=== PATIENT | female | born 1970 | race Asian ===

== ENCOUNTER 2025-08-21 09:32 | Outpatient (AMB) | payer OTHER, SELFPAY ==
--- NOTE | 2025-08-21 09:39 | A.OFFVIS_ITS ---
Vital Signs 3 08/21/25 09:48 Height 5 ft 2 in Weight 144 lb 8 oz BMI 26.4 BP 146/85 H Blood Pressure Location Lt brachial Position Sitting Pulse 68 Intake Visit Reasons: benign lipomtous neoplasm Intake Note: Patient is seen in office for evaluation of a lipoma. Pt c/o: mass located right knee cap, onset months, moves around, denies pain, discharge, redness or other concerns Patient Care Secretary Required: No Accompanied by: Self / Same As Patient Allergies Seasonal Allergies Allergy (Mild, Verified 08/21/25 09:44) Unknown Medication List - Last Reconciled 08/21/25 by Justice Escalona MD No Known Home Meds HPI Comments Details: 55-year-old female patient presenting with a soft tissue mass located above the right knee. This has been present for many years and was noted to be very mobile. He has not changed significantly over the past year but she does occasionally have some discomfort when the lesion is palpated. She feels she has some new softer lesions located above this initial lesion as well. She denies any skin changes, redness or discharge. She denies fever or chills. She denies any previous radiologic studies. She denies a history of trauma to the right knee although she does report being very active. [facility] Surgical History History of surgery on lower extremity Hx of removal of cyst History of tonsillectomy Social History Alcohol intake: current Alcohol intake frequency: holidays/special occasions only Patient Tobacco Use Status: Never used Tobacco Review of Systems Const All systems reviewed & are unremarkable except as noted in HPI and below Physical Exam Const General: cooperative and no acute distress Nutritional Appearance: well nourished Orientation/consciousness: patient oriented x3 Limitations: no limitations HEENT Head: Yes normocephalic and Yes atraumatic Ears: hearing grossly normal bilaterally Resp Effort & Inspection: normal respiratory effort, no audible wheezes, no cough and no respiratory distress Cardio Jugular venous distension: no JVD GI Inspection: Yes normal to inspection Skin Other: Warm, dry, no rash Neuro General: patient oriented x3 Extrem General: Yes no clubbing, cyanosis or edema Knee images: 2 1. Widely mobile soft tissue mass suggestive of a synovial cyst measuring approximately 1 cm in diameter. There was no tenderness to palpation. A softer area in the midline above the knee appears more consistent with a lipoma measuring approximately 1.5 cm. No overlying skin changes are noted. 2. Possible lipoma as noted above Assessment & Plan Assessment & Plan (1) Cyst of right knee joint: Code(s): M25.861 - Other specified joint disorders, right knee Category: Medical Plan 55-year-old female patient presenting with a mobile soft tissue lesion in the right knee suggestive of a synovial cyst. I recommended further evaluation with ultrasound to confirmed the diagnosis. I will call her with the results once available. She reports that she is traveling down to [place] shortly and will attempt to get the study performed in [place]. Orders: Orders 2 US Extremity Nonvas Limited RT Today M25.861 - Other specified joint disorders, right knee Coding Level of Care Code New Pt Level 4 (50827) Diagnoses Cyst of right knee joint M25.861
[2025-08-21 09:48] VITALS: BP 146/85; PULSE 68; BMI 26.4
--- OUTSIDE RECORDS SUMMARY | 2025-08-21 10:53 | XMS_ITS | Clinical Summary ---
Author Organization [facility] [facility] Prior to 01/28/25 Address [address] [place] [address] Care Team Providers Care Corporate Affairs Manager Name Role Phone Ceasar Woodruff MD Primary Care Provider [phone] Allergies Active Allergy Reactions Criticality Noted Date Comments Seasonal 05/22/2017 Medications Medication Sig Dispensed Refills Start Date End Date Status ibuprofen (ADVIL,MOTRIN) 200 MG tablet Take 800 mg by mouth every 6 (six) hours as needed for pain. 0 Active Loratadine (CLARITIN) 10 MG CAPS Take by mouth. 0 Active Multiple Vitamins-Minerals (DAILY MULTI) TABS Take by mouth. 0 Ac tive Active Problems Problem Noted Date Diagnosed Date Closed displaced spiral frac ture of shaft of tibia with delayed healing 05/22/2017 Fracture of upper end of fibula 05/22/2017 Social History Tobacco Use Types Packs/Day Years Used Date Smoking Tobacco: Never Smokeless Tobacco: Never Alcohol Use Standard Drinks/Week Comments Yes 0 (1 standard drink = 0.6 oz pur e alcohol) occasional Sex and Gender Information Value Date Recorded Sex Assigned at Not on file Gender Identity Not on file Sexual Orientation Not on file Last Filed Vital Signs Vital Sign Reading Time Taken Comments Blood Pressure 117/72 09/24/2016 12:43 AM EST Pulse 72 09/24/2016 12:43 AM EST Temperature 36.8 C (98.3 F) 09/24/2016 12:30 AM EST Respiratory Rate 17 09/24/2016 12:43 AM EST Oxygen Saturation 98% 09/24/2016 12:30 AM EST Inhaled Oxygen Concentration - - Weight 66.2 kg (146 lb) 05/22/2017 10:14 AM EDT Height 157.5 cm (5' 2 ) 05/22/2017 10:14 AM EDT Body Mass Index 26.7 05/22/2017 10:14 AM EDT Plan of Treatment Health Maintenance Due Date Last Done Comments Hepatitis B Vaccines (1 of 3 - 3-dose series) 1971 Hepatitis C Screening 1971 COVID-19 Vaccine (#1) 1971 Depression Screening 1983 Preventative Health Evaluation 1989 DTap / Tdap / Td (1 - Tdap) 1990 Cervical Cancer Screening (P ap Smear) 1992 Colon Cancer Screening (Colonoscopy) 2016 Breast Cancer Screening (Mammogram) 2021 Shingrix-Zoster Vaccine (1 of 2) 2021 Influenza Vaccine (#1) 2025 Pneumococcal Vaccine Aged Out No long er eligible based on patient's age to complete this topic RSV Ped < 20 months Aged Out No longe r eligible based on patient's age to complete this topic Medical Devices Implanted Type Area Wort Extractor Device Identifier Shelf Expiration Date Model / Serial / Lot 4.0 Mm Cortex Screw Implanted:Qty: 3 on 09/23/2016 by Zoey Teague MD at [facility] [facility] Right: Ank[employer] 09/24/2016 [id number] / / N/A Screw Lcp Fullthrd 26mm 4mm 6mm Selftap Hexagon Recess - [id number] - [id number] Implanted:Qty: 2 on 09/23/2016 by Zoey Teague MD at [facility] [facility] Right: [employer] 09/24/2016 [id number] / / N/A Screw Lcp Short Thread 36mm 4mm Isidra Stainless [employer] Bone - [id number] - [id number] Implanted:Qty: 1 on 09/23/2016 by Zoey Teague MD at [facility] [place] [facility] Right: Ankle [employer] 09/24/2016 207.636 / / N/A See [id number] Washer Lcp Small 7mm 3.6mm Stainless Steel - [id number] - [id number] Implanted:Qty: 2 on 09/23/2016 by Zoey Teague MD at [facility] [place] [facility] Right: Ank[employer] 09/24/2016 [id number] / / N/A Screw Lcp Short Thread 30mm 4mm [employer]ra Stain[employer] Bone - [id number] - [id number] Implanted:Qty: 1 on 09/23/2016 by Zoey Teague MD at [facility] Right: Ankle [employer] 09/24/2016 [id number] / / N/A Explanted Type Area Wort Extractor Device Identifier Shelf Expiration Date Model / Serial / Lot Screw Lcp Fullthrd 28mm 4mm 6mm Selftap Hexagon Recess - [id number] - [id number] Explanted:Qty: 1 on 09/23/2016 by Zoey Teague MD at [facility] Right: Ank[employer] 09/24/2016 [id number] / / N/A Care Teams Corporate Affairs Manager Relationship Specialty Start Date End Date Ceasar Woodruff MD [id number] [phone] PCP - General Internal Medicine 09/23/16
== END 2025-08-21 10:23 | disposition home or self-care (01) ==
LOC: HO.HGS 09:32
PROVIDERS: PCP Internal Medicine; Visit Provider Surgery
DX: M25.861 Other specified joint disorders, right knee (principal)
CPT/HCPCS: 99204